=== PATIENT | female | born 1990 | race Caucasian/White ===

== ENCOUNTER 2017-08-30 21:18 | Inpatient (IN) | payer MEDICAID, OTHER ==
[~2017-08-30] VITALS: Ht 160 cm; Wt 81.7 kg
[2017-08-30 21:30] VITALS: BP 117/72; PULSE 80; RESP 18
[2017-08-30] MEDS ORDERED: PNV11TAB PO (21:32)
[2017-08-30] MEDS: LACTATED RINGER'S 1,000 ML IV SCH (21:57)
[2017-08-30] MEDS ORDERED: CARBOPROST 250 MCG INJ IM PRN (22:00)
[2017-08-30] MEDS ORDERED: LIDOCAINE 1% (MPF) 30 ML INJ INJ PRN (22:00)
[2017-08-30] MEDS ORDERED: IBUPROFEN 600 MG TAB PO PRN (22:00)
[2017-08-30] MEDS ORDERED: BUTORPHANOL 2 MG INJ IV PRN (22:00)
[2017-08-30] MEDS ORDERED: MISOPROSTOL 200 MCG TAB PR PRN (22:00)
[2017-08-30] MEDS ORDERED: OXYTOCIN 30 UNITS/LR 500 ML IV PRN (22:00)
[2017-08-30] MEDS ORDERED: OXYTOCIN 30 UNITS/LR 500 ML IV SCH ×2 (22:00)
[2017-08-30] MEDS ORDERED: METHYLERGONOVINE 0.2 MG INJ IM PRN (22:00)
--- NOTE | 2017-08-30 22:12 | TRIAGE ---
OB Triage Datetime Report Generated by CPN: 08/30/2017 22:11 Datetime: 08/30/2017 21:49 Vaginal Exam Dilatation (cms): 2.5 Effacement (%): 60 Station: -3 Exam By: M.BROWN Datetime: 08/30/2017 21:16 EGA: 38.5 Datetime: 08/30/2017 21:15 Time of Arrival: 08/30/2017 21:10 Arrived By: Ambulatory Arrived From: Home Chief Complaint: C/O CONTRACTIONS Movement: Present Contractions: Irregular Time Contractions Began: 08/30/2017 19:00 Rupture of Membranes: Denies Vaginal Discharge: Denies Recent Sexual Intercouse: Denies Abdominal Trauma: Not Applicable Patient Complaints: Contractions Time Provider Notified: 08/30/2017 21:55
[2017-08-30] MEDS ORDERED: LACTATED RINGER'S 1,000 ML IV PRN (23:00)
[2017-08-30 23:33] LABS: BASOPHILS % 0.4 % (0.0-2.0); EOSINOPHILS # 0.1 10^3/ul (0.0-0.5); EOSINOPHILS % 1.2 % (0.0-7.0); HEMATOCRIT 30.5 % (37.0-47.0); HEMOGLOBIN 9.7 g/dl (12.0-16.0); LYMPHOCYTES # 2.5 10^3/ul (0.8-2.9); LYMPHOCYTES % 33.6 % (15.0-51.0); MEAN CORPUSCULAR HEMOGLOBIN 24.7 pg (29.0-33.0); MEAN CORPUSCULAR HGB CONC 31.8 g/dl (32.0-37.0); MEAN CORPUSCULAR VOLUME 77.6 fl (82.0-101.0); MEAN PLATELET VOLUME 12.1 fl (7.4-10.4); MONOCYTE # 0.4 10^3/ul (0.3-0.9); MONOCYTES % 5.7 % (0.0-11.0); NEUTROPHIL # 4.4 10^3/ul (1.6-7.5); NEUTROPHILS % 58.4 % (39.0-77.0); PLATELET COUNT 332 10^3/UL (140-415); POSITIVE DIFF @See below; RED BLOOD COUNT 3.93 10^6/ul (4.20-5.40); RED CELL DISTRIBUTION WIDTH 13.7 % (11.5-14.5); WHITE BLOOD COUNT 7.5 10^3/ul (4.8-10.8)
[2017-08-31] MEDS ORDERED: LACTATED RINGER'S 1,000 ML IV ONE (02:12)
[2017-08-31] MEDS ORDERED: FENTAnyl 2MCG/ML-ROPIV 0.2% 0 ML ONE (02:19)
[2017-08-31] MEDS ORDERED: CITRIC ACID/NA CITRATE 30 ML CUP PO ONE (02:30)
[2017-08-31] MEDS ORDERED: NALBUPHINE HCL (10 MG/1 ML) INJ IV PRN (02:30)
[2017-08-31] MEDS ORDERED: NALOXONE (0.4 MG/ML) INJ IV PRN (02:30)
[2017-08-31] MEDS ORDERED: KETOROLAC 30 MG INJ IV PRN (02:30)
[2017-08-31] MEDS ORDERED: morphine 2 MG INJ IV PRN (02:30)
[2017-08-31] MEDS ORDERED: TRIMETHOBENZAMIDE 100 MG/ML VIAL IM PRN (02:30)
[2017-08-31] MEDS ORDERED: DIPHENHYDRAMINE 50 MG INJ IV PRN (02:30)
[2017-08-31] MEDS ORDERED: FENTAnyl 2MCG/ML-ROPIV 0.2% 100 ML BAG EPI SCH (02:30)
[2017-08-31] MEDS ORDERED: ONDANSETRON 4 MG INJ IV PRN (02:30)
[2017-08-31] MEDS ORDERED: ONDANSETRON 4 MG INJ IV ONE (02:30)
[2017-08-31] MEDS ORDERED: morphine 4 MG/ML VIAL IV PRN (02:30)
[2017-08-31 02:56] LABS: INR 0.86; PROTIME 11.7 Sec (12.2-14.2); PT RATIO 0.9
[2017-08-31 02:57] LABS: PARTIAL THROMBOPLASTIN TIME 32.2 Sec (25.0-35.0)
[2017-08-31] MEDS ORDERED: MINERAL OIL LIGHT 10 ML VIAL TOP ONE (03:00)
[2017-08-31] MEDS: LACTATED RINGER'S 1,000 ML IV SCH (05:57)
--- NOTE | 2017-08-31 07:22 | LDN ---
Date/Time of Note Date/Time of Note DATE: 08/31/17 TIME: 07:20 Delivery Summary Weeks of Gestation 38w6d Placenta Delivered: Spontaneously Meconium: none Episiotomy: No Perineal laceration: 2 Laceration repair: 00ch gut Anesthesia type: Epidural Estimated blood loss: 200 Sponge & Needle done & correct: Yes All needle counts correct: Yes Any foreign bodies felt in the: No Problems: Delivery Information Sex Infant Sex: male Apgars 1 Minute: 9 5 Minute: 9 Suctioning Nose & mouth suctioned at renetta: Yes Delee suction performed: No Umbilical Cord Umbilical cord with: 3 Vessels Cord presentations: no nuchal cord Cord Blood was obtained: Yes Mother & Baby Disposition Disposition Mom & Baby to Maternity; Good: Yes Mom transferred to: Other Baby to NICU: No () ARCHIE WILSON MD Aug 31, 2017 07:22
--- NOTE | 2017-08-31 07:29 | HP ---
Date/Time of Note Date/Time of Note DATE: 08/31/17 TIME: 07:23 OB - History Hx of Present Free Text/Dictation 27 y.o at 38w5d in labor with intact membrane. initial exam 2cm/70% /-2 had unevenful care GBS neg admitted for expectant management Chief Complaint: in labor Estimated Due Date: Sep 08, 2017 : 2 Para: 1 Spontaneous : 0 Therapeutic : 0 Care: Good Care Ultrasounds: Normal mid trimester US Obstetrical Complications: None Medical Complications: None Past Family/Social History * Past Medical, Surgical, Family and Obstetric Histories reviewed from chart. Blood Type: O+ Rubella: immune RPR/VDRL: Negative GBS Status: Negative HBsAG: Negative OB Admission Exam Vital Signs Vital Signs Vital Signs Date Time Temp Pulse Resp B/P Pulse Ox O2 Delivery O2 Flow Rate FiO2 08/30/17 21:30 98.4 80 18 117/72 Room Air Physical Exam HEENT: WNL Heart: Rhythm Normal Lungs: Clear, Equal Abdomen: WNL Extremities: Normal Reflexes: Normal Cervical Dilatation: 2cm Effacement: 75% Station: -2 Membranes: Intact Amniotic Fluid: Unevaluable Heart Rate: 140's Accelerations: Accelerations Present Decelerations: No Decelerations Varibility: Moderate Contractions on Admission: < 5 Minutes Apart Intensity: Moderate Last 72 hours Lab Results CBC & BMP 08/30/17 23:09 OB Assessment/Plan Reason for admission: active labor Other Assessment: IUP 38w5d in labor Plan: Expectant Management ARCHIE WILSON MD Aug 31, 2017 07:29
[2017-08-31 09:00] VITALS: BP 105/58; PULSE 70; RESP 20
[2017-08-31] MEDS ORDERED: CARBOPROST 250 MCG INJ IM PRN (09:30)
[2017-08-31] MEDS ORDERED: LANOLIN 7 GM TUBE TOP PRN (09:30)
[2017-08-31] MEDS ORDERED: ZOLPIDEM 5 MG TAB PO PRN (09:30)
[2017-08-31] MEDS ORDERED: METHYLERGONOVINE 0.2 MG INJ IM PRN (09:30)
[2017-08-31] MEDS ORDERED: MISOPROSTOL 200 MCG TAB PR PRN (09:30)
[2017-08-31] MEDS ORDERED: BENZOCAINE 20% 56 ML SPRAY TOP PRN (09:30)
[2017-08-31] MEDS ORDERED: OXYTOCIN 30 UNITS/LR 500 ML IV PRN (09:30)
[2017-08-31] MEDS ORDERED: OXYCODONE/ASPIRIN (4.88/325) TAB PO PRN ×2 (09:30)
[2017-08-31] MEDS: OXYTOCIN 30 UNITS/LR 500 ML IV SCH ×5 (11:37→23:30)
[2017-08-31 12:00] VITALS: BP 113/68; PULSE 68
[2017-08-31] MEDS: WITCH HAZEL/GLYCERIN PAD PR PRN (12:21)
[2017-08-31 16:00] VITALS: BP 124/77; PULSE 60; RESP 16
[2017-08-31] MEDS: IBUPROFEN 600 MG TAB PO SCH ×2 (18:08→19:30)
[2017-08-31 20:00] VITALS: BP 106/69; PULSE 70; RESP 19
[2017-08-31] MEDS: SENNA/DOCUSATE NA (8.6MG/50MG) TAB PO SCH (20:46)
[2017-09-01 00:30] VITALS: BP 103/64; PULSE 68; RESP 19
[2017-09-01] MEDS: IBUPROFEN 600 MG TAB PO SCH ×4 (00:57→17:29)
[2017-09-01] MEDS: OXYTOCIN 30 UNITS/LR 500 ML IV SCH ×2 (01:57→06:29)
[2017-09-01 04:45] VITALS: BP 108/65; PULSE 60; RESP 19
--- NOTE | 2017-09-01 07:32 | PN ---
Date/Time of Note Date/Time of Note DATE: 09/01/17 TIME: 07:30 OB Subjective Subjective Subjective no b.m yet no c/o OB Objective Objective Objective vss afebrile fundus firm lochia min calf neg for tenderness OB Assessment/Plan Other Assessment: stable post vaginal delivery#1 Other plan: d/s home in am ARCHIE WILSON MD Sep 01, 2017 07:32
[2017-09-01 08:00] VITALS: BP 108/67; PULSE 69; RESP 17
[2017-09-01 09:08] LABS: BASOPHILS % 0.3 % (0.0-2.0); EOSINOPHILS # 0.1 10^3/ul (0.0-0.5); EOSINOPHILS % 0.6 % (0.0-7.0); HEMOGLOBIN 8.5 g/dl (12.0-16.0); LYMPHOCYTES # 2.3 10^3/ul (0.8-2.9); LYMPHOCYTES % 23.5 % (15.0-51.0); MEAN CORPUSCULAR HEMOGLOBIN 24.2 pg (29.0-33.0); MEAN CORPUSCULAR HGB CONC 31.5 g/dl (32.0-37.0); MEAN CORPUSCULAR VOLUME 76.9 fl (82.0-101.0); MEAN PLATELET VOLUME 11.8 fl (7.4-10.4); MONOCYTE # 0.4 10^3/ul (0.3-0.9); MONOCYTES % 3.6 % (0.0-11.0); NEUTROPHILS % 71.5 % (39.0-77.0); PLATELET COUNT 285 10^3/UL (140-415); RED BLOOD COUNT 3.51 10^6/ul (4.20-5.40); RED CELL DISTRIBUTION WIDTH 13.9 % (11.5-14.5); WHITE BLOOD COUNT 9.8 10^3/ul (4.8-10.8)
[2017-09-01] MEDS: SENNA/DOCUSATE NA (8.6MG/50MG) TAB PO SCH ×2 (09:34→21:53)
[2017-09-01 16:00] VITALS: BP 102/58; PULSE 77; RESP 16
[2017-09-01 20:00] VITALS: BP 116/73; PULSE 67; RESP 19
[2017-09-02] MEDS: IBUPROFEN 600 MG TAB PO SCH ×3 (00:54→12:26)
[2017-09-02 04:49] VITALS: BP 98/58; PULSE 62; RESP 19
[2017-09-02 07:50] VITALS: BP 107/65; PULSE 62; RESP 18
[2017-09-02] MEDS ORDERED: DIPHTH/TET/ACEL PERTUSS (ADULT) 0.5 ML VIAL IM* ONE (09:00)
[2017-09-02] MEDS: SENNA/DOCUSATE NA (8.6MG/50MG) TAB PO SCH (09:13)
--- NOTE | 2017-09-02 10:19 | PD.PPDC ---
BEFORE SCHOOL Discharge Instruction Diagnosis Final Diagnosis: s/p normal vaginal delivery Condition Patient Condition: Stable Diet Diet: Resume Regular Diet Activity/Restrictions Restrictions: No Lifting No Sexual Activity Nothing in the Vagina No Pala No Tampons, douche Follow-up Follow-up with Physician: 6, Week/Weeks Return to clinic for [facility] Instructions: Fever greater than 101 Chills Worsening abdominal pain Excessive Vaginal Bleeding More than 2 pads per hour Unable to tolerate diet OB Instructions: Breast Tenderness Depression Blurried Vision ARCHIE WILSON MD Sep 02, 2017 10:19
--- NOTE | 2017-09-02 10:23 | DS ---
Date/Time of Note Date/Time of Note DATE: 09/02/17 TIME: 10:21 Obstetrical Discharge Record Final Diagnosis Final Diagnosis: Term delivered Vaginal Delivery Obstetrical Delivery: Spontaneous, Laceration, Repaired Complications Rupture of Membranes: No Condition on Discharge Physical Assessment Last Vitals: VSS aferile Voiding: Yes Bowel Movement: Yes Breast: Soft, non-tender Fundus: Firm Calf Tenderness: No Patient Condition: Stable ARCHIE WILSON MD Sep 02, 2017 10:23
[2017-09-02] MEDS: WITCH HAZEL/GLYCERIN PAD PR PRN (13:58)
== END 2017-09-02 15:52 | disposition home or self-care (01) | DRG 775 ==
LOC: OBT 21:18 → L-D 21:20 → OBT 21:55 → L-D 21:55 → PP1 08-31 09:02
PROVIDERS: ADMIT Obstetrics & Gynecology; ATTEND Obstetrics & Gynecology
PROC: 10E0XZZ Delivery of Products of Conception, External Approach (ICD-10-PCS; principal; 2017-08-30)
PROC: 0KQM0ZZ Repair Perineum Muscle, Open Approach (ICD-10-PCS; 2017-08-30)
DX: O70.1 Second degree perineal laceration during delivery (principal); Z37.0 Single live birth; Z3A.38 38 weeks gestation of pregnancy
CPT/HCPCS: 62319; 85025; 85610; 85730; 86592; 86900; 86901; 87340; 90715; G0463; J0595; J2405; J2590; J3010; J7120

== ENCOUNTER 2019-09-09 05:55 | Day surgery (SDC) | payer OTHER ==
[~2019-09-09] VITALS: Ht 160 cm; Wt 71.8 kg
[~2019-09-09 05:55] MED LIST: PNV11TAB PO
[2019-09-09 06:40] VITALS: Ht 160 cm; Wt 71.8 kg
[2019-09-09 08:09] VITALS: BP 105/64; PULSE 71; RESP 20
[2019-09-09] MEDS ORDERED: FENTAnyl 50 MCG/ML VIAL ONE (08:42)
[2019-09-09] MEDS ORDERED: MIDAZOLAM 1 MG/ML 2 ML INJ ONE ×2 (08:42)
[2019-09-09 09:30] VITALS: BP 98/59; RESP 34
== END 2019-09-09 12:23 | disposition home or self-care (01) ==
LOC: GIL 05:55
PROVIDERS: ATTEND Internal Medicine Gastroenterology
DX: K44.9 Diaphragmatic hernia without obstruction or gangrene (principal); K21.9 Gastro-esophageal reflux disease without esophagitis; K29.30 Chronic superficial gastritis without bleeding
CPT/HCPCS: 43239; 88305; 88312; J2250; J3010; Z7610